=== PATIENT | male | born 2000 | race African-American/Black ===

== ENCOUNTER 2022-11-22 10:40 | Emergency (ER) | payer OTHER ==
[~2022-11-22] VITALS: Ht 182.9 cm; Wt 127.0 kg
[2022-11-22 10:46] VITALS: BP 115/75; PULSE 65; RESP 16; TEMP 98.1; O2SAT 100
[2022-11-22] MEDS ORDERED: MAGNESIUM/ALUMINUM HYDROXIDE/SIMETHICONE 30ML UDC PO STA (10:47)
[2022-11-22] MEDS ORDERED: ONDANSETRON 4MG ODT PO ONE (11:00)
[2022-11-22] MEDS ORDERED: MAGNESIUM/ALUMINUM HYDROXIDE/SIMETHICONE 30ML UDC PO NR (14:04)
[2022-11-22] MEDS ORDERED: ONDANSETRON 4MG ODT PO NR (14:05)
[2022-11-22 14:40] LABS: BASOPHILS % 0.7 % (0.0-2.0); EOSINOPHILS % 9.4 % (0.0-5.0); HEMATOCRIT. 43.1 % (42.0-52.0); HEMOGLOBIN. 14.9 g/dL (14.0-18.0); MEAN CORPUSCULAR HEMOGLOBIN 28.8 pg (28.0-32.0); MEAN CORPUSCULAR VOLUME 83.5 fL (80.0-94.0); MEAN PLATELET VOLUME 7.4 fl (7.4-10.4); MONOCYTES % 8.5 % (2.0-8.0); NEUTROPHILS % 46.4 % (40.0-76.0); PLATELET 297 x1000/uL (130-400); RED BLOOD CELL COUNT 5.17 mill/uL (4.7-6.1); RED CELL DISTRIBUTION WIDTH 14.1 % (11.6-14.6)
[2022-11-22 14:45] LABS: CHLORIDE 104 mEq/L (98-107)
[2022-11-22] MEDS ORDERED: ONDA4TAB50 MT (14:52)
[2022-11-22] MEDS ORDERED: MAG355OR21 MT (14:52)
[2022-11-22 14:54] LABS: ETHANOL BLOOD < 10 mg/dL (-10)
[2022-11-22 14:58] LABS: PROTHROMBIN TIME 10.4 sec (9.6-11.0)
== END 2022-11-22 15:42 | disposition home or self-care (01) ==
LOC: ER 10:40
DX: K29.70 Gastritis, unspecified, without bleeding (principal)
CPT/HCPCS: 80053; 80320; 83690; 85025; 85610; 36415; 71045; 76705; 99284; Q0162; G0480